=== PATIENT | male | born 1995 | race Hispanic/Latino ===

== ENCOUNTER 2021-08-22 12:59 | Emergency (ER) | payer OTHER, SELFPAY ==
[2021-08-22] MEDS ORDERED: Ketorolac Tromethamine 30 MG/ML VIAL ONE (14:05)
[2021-08-22] MEDS ORDERED: Boostrix 0.5 ML (Tdap) VIAL ONE (14:05)
[2021-08-22] MEDS ORDERED: Acetaminophen 500 MG TAB ONE (14:05)
== END 2021-08-22 14:59 | disposition home or self-care (01) ==
LOC: CSHERS 12:59
DX: S70.12XA Contusion of left thigh, initial encounter (principal); S80.01XA Contusion of right knee, initial encounter; S30.1XXA Contusion of abdominal wall, initial encounter; S00.412A Abrasion of left ear, initial encounter; S30.810A Abrasion of lower back and pelvis, initial encounter; S80.812A Abrasion, left lower leg, initial encounter; F17.210 Nicotine dependence, cigarettes, uncomplicated; W20.8XXA Other cause of strike by thrown, projected or falling object, initial encounter; Y92.69 Other specified industrial and construction area as the place of occurrence of the external cause; Z23 Encounter for immunization
CPT/HCPCS: 74177; 90471; 90715; 96374; J1885